=== PATIENT | male | born 1990 | race African-American/Black ===

== ENCOUNTER 2021-08-12 14:58 | Emergency (ER) | payer SELFPAY ==
[~2021-08-12] VITALS: Ht 190.5 cm; Wt 139.3 kg
--- NOTE | 2021-08-12 14:58 | NUR ---
PT BIB SELF C/O SORE THROAT SINCE YESTERDAY. STATES HISTORY OF TONSIL ABSCESS. PT IS AAOX4, NOT IN RESPIRATORY DISTRESS, V/S STABLE, KEPT RESTED AND COMFORTABLE. WILL CONTINUE TO MONITOR.
--- NOTE | 2021-08-12 15:30 | NUR ---
SEEN AND EXAMINED BY RONN AQUINO.
[2021-08-12] MEDS ORDERED: DEXAMETHASONE SOD PHOSPHATE 10 MG/ML VIAL ONE (15:50)
[2021-08-12] MEDS ORDERED: KETOROLAC TROMETHAMINE 15 MG/ML VIAL ONE (15:50)
--- NOTE | 2021-08-12 16:00 | NUR ---
IV LINE ESTABLISHED BLOOD DRAWN AND SENT TO LAB.
[2021-08-12] MEDS: DEXAMETHASONE SOD PHOSPHATE 10 MG/ML VIAL IV ONE (16:01)
[2021-08-12] MEDS: IV NS 0.9% 1,000 ML BAG IV ONE (16:01)
[2021-08-12] MEDS: KETOROLAC TROMETHAMINE INJ 30 MG/ML VIAL IV ONE (16:02)
--- NOTE | 2021-08-12 16:05 | NUR ---
RAPID STREP OBTAINED AND SENT TO LAB.
[2021-08-12 16:56] LABS: MONOTEST NEGATIVE (NEGATIVE)
[2021-08-12] MEDS ORDERED: CLIN300C12 PO (17:13)
[2021-08-12] MEDS: CLINDAMYCIN 900 MG in IV D5W 50 ML IV ONE (17:57)
[2021-08-12 18:37] VITALS: BP 144/83
== END 2021-08-12 18:38 | disposition home or self-care (01) ==
LOC: ER 15:03
DX: J02.0 Streptococcal pharyngitis (principal); J02.9 Acute pharyngitis, unspecified; R13.10 Dysphagia, unspecified; R03.0 Elevated blood-pressure reading, without diagnosis of hypertension; Z88.0 Allergy status to penicillin
CPT/HCPCS: 36415; 86308; 87880; 96361; 96365; 96375; 99284; J1100; J1885; J3490; J7030; J7060; 86403-TC

== ENCOUNTER 2021-08-17 23:13 | Emergency (ER) | payer MEDICAID ==
[~2021-08-17] VITALS: Ht 190.5 cm; Wt 124.7 kg
[~2021-08-17 23:13] MED LIST: CLIN300C12 PO
--- NOTE | 2021-08-18 00:21 | NUR ---
BIBS C/O THROAT PAIN AND SWELLING. PT DX WITH STREP X 3 DAYS AGO. DIFFICULT TO SWALLOW AND BREATHE PER PATIENT. PT ALERT AND ORIENTED X 4 APPEARS IN MILD DISTRESS. RESPIRATION EVEN AND UNLABORED 98% RA R 20.
[2021-08-18] MEDS ORDERED: ONDANSETRON HCL/PF 4 MG/2 ML VIAL ONE (00:52)
[2021-08-18] MEDS ORDERED: METRONIDAZOLE 500MG/ NS 100ML 100 ML IV ONE ×2 (00:52→01:00)
[2021-08-18] MEDS ORDERED: HYDROMORPHONE 1 MG/1 ML DISP.SYRIN ONE ×3 (00:52→05:05)
[2021-08-18] MEDS ORDERED: CLINDAMYCIN PHOSPHATE IV 600 MG/4 ML VIAL ONE (00:52)
--- NOTE | 2021-08-18 00:57 | NUR ---
PAGED DR ENG PRACTICE OFFICE ASSOCIATE PER DR BLACK'S ORDER
[2021-08-18] MEDS ORDERED: ONDANSETRON HCL/PF - ER 4 MG/2 ML VIAL IV ONE (01:00)
[2021-08-18] MEDS ORDERED: CLINDAMYCIN 600 MG in IV D5W 100 ML IV ONE (01:00)
[2021-08-18] MEDS ORDERED: HYDROMORPHONE 1 MG/1 ML DISP.SYRIN IV ONE ×3 (01:00→05:00)
--- NOTE | 2021-08-18 01:13 | NUR ---
BLOOD COLLECTED AND SENT TO LAB
[2021-08-18 01:32] LABS: CALCIUM, SERUM 9.5 mg/dL (8.5-10.1); CREATININE 1.1 mg/dL (0.6-1.3); POTASSIUM 3.7 mmol/L (3.5-5.1)
[2021-08-18 01:34] LABS: BASOPHILS # (AUTO) 0.1 K/uL (0.0-0.2); BASOPHILS % (AUTO) 0.2 % (0.0-2.0); EOSINOPHILS % (AUTO) 0.1 % (0.0-6.0); HEMATOCRIT 50 % (39-51); HEMOGLOBIN 16.5 g/dL (13.5-17.5); LYMPHOCYTES # (AUTO) 2.2 K/uL (0.8-4.8); LYMPHOCYTES % (AUTO) 5.4 % (20.0-44.0); MEAN CORPUSCULAR HGB CONC 33 g/dl (31.0-36.0); MEAN CORPUSCULAR VOLUME 89 fL (80-96); MONOCYTES # (AUTO) 4.8 K/uL (0.1-1.30); MONOCYTES % (AUTO) 11.8 % (2.0-12.0); NEUTROPHILS # (AUTO) 33.3 K/uL (1.8-8.9); NEUTROPHILS % (AUTO) 82.5 % (43.0-81.0); PLATELET COUNT (AUTO) 391 K/uL (150-450); RED BLOOD CELL COUNT(AUTO) 5.56 MIL/uL (4.5-6.0)
[2021-08-18 01:37] LABS: ALBUMIN 3.4 g/dL (3.4-5.0); BILIRUBIN,DIRECT 0.2 mg/dL (0.0-0.2); BILIRUBIN,TOTAL 0.6 mg/dL (0.2-1.0); TOTAL PROTEIN, SERUM 9.1 g/dL (6.4-8.2)
[2021-08-18 01:42] LABS: WHITE BLOOD COUNT (AUTO) 40.3 K/uL (4.3-11.0)
--- NOTE | 2021-08-18 02:20 | NUR ---
RE PAGED DR ENG
--- NOTE | 2021-08-18 02:41 | NUR ---
CALLED [facility] FOR POSSIBLE TRANSFER FOR HIGHER LOC. NO ENT ON BOARD PER KAY
--- NOTE | 2021-08-18 02:44 | NUR ---
CALLED [facility] TRANSFER LINE, PER MIKEL THEY'RE AT [facility]
--- NOTE | 2021-08-18 02:51 | NUR ---
CALLED [facility] AND SPOKE TO OSVALDO. PER HER THEY HAVE NO BED AVAILABLE AT THIS TIME
--- NOTE | 2021-08-18 03:07 | NUR ---
CALLED [facility] AT [phone] AND GAVE A COMPREHENSIVE REPORT TO EDER.
--- NOTE | 2021-08-18 03:14 | NUR ---
FAXED FACESHEET AND CLININCALS TO [facility] AT [phone]
[2021-08-18] MEDS ORDERED: IOHEXOL-300 100 ML VIAL IV ONE (03:18)
--- NOTE | 2021-08-18 03:37 | NUR ---
PT TAKEN TO AND RETURNED FROM [place].
--- NOTE | 2021-08-18 04:47 | NUR ---
PT AWAKE AND ALERT. NO APPARENT RESPIRITORY DISTRESS BREATHING EVEN AND UNLABORED. V/S WNL. WILL CONTINUE TO MONITOR
--- NOTE | 2021-08-18 04:55 | NUR ---
CALLED [facility] AND SPOKE TO HAL. UNABLE TO ACCPET ANY PT AT THIS TIME.
--- NOTE | 2021-08-18 05:03 | NUR ---
CALLED [facility] AT [phone]. NO PROGRAM MGR ENT
--- NOTE | 2021-08-18 05:16 | NUR ---
SPOKE TO BRANDAN AT [facility] AND FAXED THE FACE SHEET AND CLININCALS OVER TO [phone]
--- NOTE | 2021-08-18 05:17 | NUR ---
FAXED CT AND COVID RESULT TO [facility]
--- NOTE | 2021-08-18 05:20 | NUR ---
FOLLOWED UP WITH EDER AT [facility]. NO BED AVAILABLE AT THIS TIME. TO FOLLOW UP IN AM.
--- NOTE | 2021-08-18 05:35 | NUR ---
SPOKE TO ALFRED AT [facility]. AT [facility]
--- NOTE | 2021-08-18 05:46 | NUR ---
CALLED [facility]. PER DAISY THEY'RE AT [facility]
--- NOTE | 2021-08-18 05:48 | NUR ---
CALLED [facility], JAYMIE JAQUEZ NO ENT CERVICES
--- NOTE | 2021-08-18 05:52 | NUR ---
CALLED [facility]. THEY HAVE NO ENT CERVICE
[2021-08-18] MEDS ORDERED: DEXAMETHASONE SOD PHOSPHATE 10 MG/ML VIAL IV ONE (06:00)
[2021-08-18] MEDS ORDERED: DEXAMETHASONE SOD PHOSPHATE 10 MG/ML VIAL ONE (06:04)
--- NOTE | 2021-08-18 06:05 | NUR ---
Sukhjinder cordova in [facility] - 08/18/21 at [address] BLACK ON THE PHONE W/ DR MCCLURE AT [facility]
--- NOTE | 2021-08-18 06:05 | NUR ---
DR BLACK ON THE PHONE W/ DR MCCLURE AT [facility]
--- NOTE | 2021-08-18 06:07 | NUR ---
PT GOT ACCPETED AT [facility] BY DR MCCLURE. # FOR REPORT: [phone], FAX: [phone]
--- NOTE | 2021-08-18 06:08 | NUR ---
CALLED [facility] FOR ALS TRANSPORT. NO ALS TRANSPORT AVAILABLE UNTIL 193.
--- NOTE | 2021-08-18 06:08 | NUR ---
[facility] HAS NO ALS AVAILABLE
--- NOTE | 2021-08-18 06:24 | NUR ---
CALLED [facility] FOR POSSIBLE AIR TRANSPO [facility]. SINCE ALS TRANSPORTATION TAKES TOO LONG
--- NOTE | 2021-08-18 06:28 | NUR ---
CALLED [facility] FOR ALS TRANSPORT. NO ALS AVAILABLE.
--- NOTE | 2021-08-18 06:29 | NUR ---
CALLED [facility] FOR ALS TRANSPORT. NO ALS AVAILABLE.
--- NOTE | 2021-08-18 06:31 | NUR ---
TERESA MATHIS ETA:20MIN
--- NOTE | 2021-08-18 06:37 | NUR ---
REPORT GIVEN TO UMBERTO AT [facility] FOR B[facility]
--- NOTE | 2021-08-18 07:16 | NUR ---
BEDSIDE REPORT GIVEN TO AM [facility] FINAL INSPECTOR [facility]TLE
[2021-08-18 07:19] VITALS: BP 167/99
--- NOTE | 2021-08-18 07:23 | NUR ---
PT TRANSPORTED BY [facility] TRANSPORT TO [facility] VIA ALS AMBULANCE. V/S STABLE AT TIME OF TRANSFER. PT CHART PROVIDED TO [facility] FOR [facility]UD.
[2021-08-18 10:36] LABS: LYMPHOCYTES % (MANUAL) 6 % (16-48); METAMYELOCYTES % 1 % (0-0); MONOCYTES % (MANUAL) 6 % (0-11.0); NEUTROPHILS % (MANUAL) 87 (42-76)
== END 2021-08-18 07:26 | disposition short-term general hospital (02) ==
LOC: ER 23:15
DX: J03.80 Acute tonsillitis due to other specified organisms (principal); B95.8 Unspecified staphylococcus as the cause of diseases classified elsewhere; Z88.0 Allergy status to penicillin; Z20.822 Contact with and (suspected) exposure to COVID-19; R03.0 Elevated blood-pressure reading, without diagnosis of hypertension
CPT/HCPCS: 36415; 70491; 80048; 80076; 85007; 85025; 85730; 87040 ×2; 87426; 96365; 96367; 96375; 96376; 99285; C9803; J1100; J1170 ×3; J2405 ×2; J3490; J7060 ×2; Q9967